=== PATIENT | male | born 1975 | race Caucasian/White ===

== ENCOUNTER → 2021-03-24 13:47 | Outpatient (BNVA) | payer BC, SELFPAY | PROVIDERS: Visit Provider Internal Medicine | DX: M23.41 Loose body in knee, right knee (principal); M25.461 Effusion, right knee | CPT/HCPCS: 73562; 99203 ==

== ENCOUNTER → 2021-03-25 13:41 | Outpatient (BNVA) | payer BC, SELFPAY | PROVIDERS: Visit Provider Internal Medicine | DX: M25.461 Effusion, right knee (principal); M25.561 Pain in right knee | CPT/HCPCS: 99213 ==

== ENCOUNTER 2021-03-25 14:27 | Emergency (ER) | payer BC, SELFPAY ==
--- NOTE | ~2021-03-25 | XR_ITS ---
EXAMINATION: XR KNEE, RIGHT CLINICAL INFORMATION: Right knee pain COMPARISON: March 24, 2021 and May 04, 2017 TECHNIQUE: Four views of the right knee. FINDINGS: There is no evidence of acute fracture or dislocation of the right knee. Right knee joint spaces are maintained. There is a large right knee effusion. There is again noted to be a 2.3 x 1.0 cm bony density posterior to the lateral tibial plateau without significant change and likely related to osteochondritis dissecans. The donor site appears to be the medial femoral condyle where there is some articular irregularity. There is spur site of insertion of the quadriceps tendon on the patella. XR/XR knee RT 4V IMPRESSION: Osteochondritis dissecans of the right knee with loose body seen posterior to the lateral tibial plateau and with donor site involving the right medial femoral condyle. Large right knee effusion.
--- NOTE | ~2021-03-25 | CT_ITS ---
EXAMINATION: CT KNEE WITHOUT CONTRAST, RIGHT CLINICAL INFORMATION: Swelling concern for quadriceps tendon rupture. COMPARISON: X-rays of the right knee March 2021 and April 2017 TECHNIQUE: CT scan of the right knee was performed without contrast with reconstruction imaging performed at the acquisition workstation. This CT examination was performed using dose optimization techniques as appropriate, variously including the following: *Automated exposure control *Adjustment of mA and/or kV according to patient size (this includes techniques or standardized protocols for targeted exams where dose is matched to indication/reason for exam; i.e. extremities or head) *Use of iterative reconstruction technique DLP: 241 mGy-cm FINDINGS: There is irregularity of the weightbearing femoral articular surface as seen on recent and prior radiographs over an area measuring approximately 2 cm transverse and 2 cm AP. There is some increased sclerosis and irregular lucency along the borders of the remaining condyle at the joint surface. There is also an oval-shaped loose body present along the posterior recess of the lateral compartment possibly within the popliteal tendon sheath. This fragment measures 19 mm transverse, 8 mm AP, and 16 mm craniocaudal. On the 2016 x-ray exam, the fragment is noted in the suprapatellar recess indicating that the fragment has migrated. There is a moderate joint effusion. The quadriceps tendon and patellar tendon are intact. There is mild edema in the subcutaneous soft tissues. The remaining bones, joints and soft tissues are unremarkable. CT/CT knee RT wo con IMPRESSION: Quadriceps tendon intact. Joint effusion. Osteochondral abnormality along the weightbearing medial femoral condyle likely reflects an area of osteochondritis dissecans or old osteochondral fracture. This is a donor site for the displaced loose body noted within the posterior recess of the lateral compartment versus popliteus tendon sheath.
--- NOTE | 2021-03-25 14:34 | ED.LOWEXIN ---
HPI - Extremity Injury (Lower) General Chief Complaint: Extremity Injury, Lower Stated Complaint: rt knee pain - work related Time Seen by Provider: 03/25/21 14:32 Source: patient Mode of arrival: ambulatory Limitations: no limitations History of Present Illness HPI Narrative: 45 y/o male presenting to the ER from [facility] with right knee pain for the last 2 days. While at work on 03/23 patient was sitting with his right leg crossed over his left leg and when he went to move his right leg back to the ground to get up, he head a pop and had immediate pain and swelling. He was seen at the [facility] yesterday where an x-ray showed a knee effusion and a loose body that was from his prior knee surgery in 2001. He has been taking motrin for pain and icing his knee however the pain has been worsening, so he went back to [facility] for further evaluation. [facility] MD concerned about swelling and possible need for arthrocentesis. MD complaint: knee injury Onset (ago): day(s) (2) Injury: Right: knee Type of Injury: unknown Place: work Severity: severe Severity scale (1-10): 8 Relieving factors: NSAID, cold therapy, immobilization and rest Exacerbating factors: weight bearing, movement and palpation Associated symptoms: snap/pop sensation, swelling and unable to bear weight Other symptoms: none Treatments prior to arrival: cold therapy and NSAIDS Related Data Allergies Allergy/AdvReac Type Severity Reaction Status Date / Time No Known Allergies Allergy Unverified 06/03/20 16:26 Review of Systems Review of Systems: Constitutional: No Fever, No Chills Gastrointestinal: No Nausea, No Vomitinga Musculoskeletal: + joint pain, + Myalgias Skin: No Skin Lesions, No rash Neuro: No Weakness, No Numbness Heme/Lymph: + Bruising, No Lymphadenopathy PMFSH Past Medical History Attestation statement: The following information was validated with the patient. Surgical History H/O arthroscopic knee surgery History of ankle surgery Social History Social History Advance Directives: No Advance Directives Information Provided: Yes Physical Exam Vital Signs: Vital Signs: Last Vital Signs Temp 97.8 F 03/25/21 15:32 Pulse 72 03/25/21 15:32 Resp 18 03/25/21 15:32 BP 133/82 03/25/21 15:32 Pulse Ox 98 03/25/21 15:32 Body Mass Index 27.7 Appearance: Alert. Oriented X3. No acute distress. HEENT: normal inspection CVS: Normal heart rate and rhythm. Pulses normal. Respiratory: No respiratory distress. Skin: Skin warm and dry. Normal skin color. Normal skin turgor. No rashes. Extremities: right knee with moderate suprapatellar swelling, no warmth or erythema. normal palpation of patella, unable to assess joint laxity due to swelling and pain, pain with flexion beyond 45 degrees Neuro: Oriented X 3. No motor deficit. No sensory deficit. Course Course Course Narrative: 45 y/o male presenting with worsening right knee pain and swelling s/p recent minor injury with popping sensation. Pain 8/10. Unable to see x-ray from yesterday, will repeat and try to compare. Swelling is above the knee and seems to be related to distal quadriceps with difficulty bending the knee. Concern for possible partial quadricep tendon injury or rupture. Will get CT scan for further evaluation. Dr. Card assessed the patient as well, examination does not support septic joint or infection as there is no redness or warmth appreciated. Reevaluation(s) Reevaluation #1: CT scan showing Quadriceps tendon intact. Moderate Joint effusion. Osteochondral abnormality along the weightbearing medial femoral condyle likely reflects an area of osteochondritis dissecans or old osteochondral fracture. This is a donor site for the displaced loose body noted within the posterior recess of the lateral compartment versus popliteus tendon sheath. Placed in CARA wrap for compression and support. The displaced loose body is chronic. Again there are no signs of infection. We discussed options of therapeutic arthrocentesis and its indications. Given there is no risk of joint infection at this time, we will hold off until he evaluated by Ortho next week. Instructed to come back to the ER if joint becomes hot and red. Stable for d/c home [facility] pain control and supportive care with Ortho f/u next week. Discharge Plan Discharge Clinical Impression: Knee effusion, right Patient Disposition: Home, Self-Care Instructions: Swollen Knee Joint (ED) Additional Instructions: Your CT scan showed a joint effusion or fluid in the knee. Recommend rest, elevation and ice whenever possible. Wear the CARA wrap for compression and support. Follow up with Orthopedics as scheduled next week. Take Ibuprofen 600 mg every 6 hours and Tylenol 975 mg every 6 hours. Take your prescribed oxycodone as needed for severe pain. Stay off of you right leg and use crutches until evaluated by Orthopedics. If you develop worsening pain, swelling, redness, or warmth of the knee come back to the ER for further evaluation. Stand Alone Forms: Work/School Release Interventions: ED Discharge Assessment Last Done: 03/25/21 16:57 Discharge Date/Time: 03/25/21 16:58
[2021-03-25 14:58] VITALS: BP 124/83; PULSE 80; RESP 16; TEMP 36.4; O2SAT 97; BMI 27.7
[2021-03-25] MEDS: HYDROcodone Bit/Acetam 5/325 TABLET 1 TAB PO (15:16)
[2021-03-25] MEDS: Ketorolac Tromethamine 30 MG/ML VIAL IM (15:16)
[2021-03-25 15:32] VITALS: BP 133/82; PULSE 72; RESP 18; TEMP 36.6; O2SAT 98
== END 2021-03-25 16:58 | disposition home or self-care (01) ==
PROVIDERS: Emergency Provider Emergency Medicine
DX: M25.461 Effusion, right knee (principal); M25.561 Pain in right knee
CPT/HCPCS: 73564; 73700; 96372; 99284; J1885

== ENCOUNTER → 2021-04-01 10:21 | Outpatient (BNVA) | payer OTHER, BC, SELFPAY | PROVIDERS: Visit Provider Physician Assistant | DX: M25.461 Effusion, right knee (principal); M23.91 Unspecified internal derangement of right knee | CPT/HCPCS: 20610; 99202; J1040 ==

== ENCOUNTER → 2021-05-13 09:14 | Outpatient (BNVA) | payer BC, SELFPAY | PROVIDERS: Visit Provider Physician Assistant ==

== ENCOUNTER 2021-05-17 16:00 | Outpatient (RCR) | payer BC, SELFPAY ==
--- NOTE | 2021-04-20 13:24 | MHC.PT.EP ---
[facility] [place] Office [place] [facility] [place] Office [address] Devon Becker [address] [phone] F: [phone] F: [phone] F: [phone] F: [phone] Physical Therapy Plan of Care Date of Evaluation: Date of Surgery: Diagnosis: This is a 45 yo male presenting to skilled PT with a script for R knee effusion. Assessment: Patient reporting that he was sitting at work with L leg crossed over knee figure 4 style when he felt pain that was sharp after 5 mins (began on 03/24). He went to [facility] who referred him to [facility] ortho (drained his knee and provided an injection?). His knee felt better a few days after this but he still has pain with standing/walking/descending stairs (light duty at work currently). He also reports that he does not have full confidence in stability or pain (reports buckling on occasion). He had arthroscopic R knee (unsure what he had done) back in 2001 on this R knee. His pain is located at the posterior aspect of the knee that is described as sharp and anterior/inferior aspect described as dull constant ache. Denies numbness or tingling or radiating symptoms. He is wearing a knee sleeve that he wears usually at work only. He enjoys kayaking and fishing (usually about 3 hrs) but unable to tolerate this (only a half hour tolerated). 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 Assessment reveals pain that ranges up to a 6/10. He demos decreased knee and ankle ROM, decreased R quad, hip and ankle strength, impaired hamstring and gastroc length, gait pattern with antalgic pattern favoring the R, decreased tolerance for patella joint mobility as well as gross functional decline with sitting in kayak, standing, descending stairs and walking. He is a good candidate for skilled PT 2x/wk for 5wks. Frequency and Duration: The patient will be seen 2x/wk for 5wks Short Term Goals: I in HEP normalize and equal R hamstring and gastroc length Return to sleeping without waking from pain Retirement Goals: Returns to kayaking and sitting posture without pain (full 3 hrs) Return to work full duty Normalize LE ROM and strength Treatment Plan: Modalities to reduce pain, spasms and effusion. Manual therapy to restore motion and function. Therapeutic exercise to improve strength and flexibility. Neuromuscular re-education for posture and balance. Therapeutic activities to return to functional activities of daily living. Electronically signed by: Jolene Rivers PT Please sign and return to therapist. Thank you for your referral.
--- NOTE | 2021-06-01 13:23 | MHC.PT.DC ---
[facility] [place] Office [place] Office [place] Office [address] [facility] [phone] F: [phone] F: [phone] F: [phone] F: [phone] Physical Therapy Discharge Report Diagnosis: This is a 45 yo male presenting to skilled PT with a script for R knee effusion. Date of Surgery: Date of Evaluation: 04/20/21 Date of Discharge: 06/01/21 Treatments to Date: 6 Cancellations to Date: 0 No Shows to Date: 0 Discharge Status: Achieved Goals Improved Function Independent with HEP Patient Elected to Stop Discharge Summary: Patient without any pain during exercises at last session. He demonstrated ROM WNL and good strength. He has an HEP to continue on own. DC to HEP at this time. Electronically signed by: Jolene Rivers PT Please sign and return to therapist. Thank you for your referral.
== END 2021-06-01 13:24 | disposition home or self-care (01) ==
LOC: HO.PTCHIC 16:00
PROVIDERS: Visit Provider Physician Assistant
DX: M25.461 Effusion, right knee (principal); M23.91 Unspecified internal derangement of right knee
CPT/HCPCS: 97110; 97112; 97140; 97161; 97162